=== PATIENT | female | born 1995 ===

== ENCOUNTER 2024-02-03 14:07 | Inpatient (IN) | payer BC ==
[2024-02-03] MEDS ORDERED: Sodium Chloride 0.9% 20 ML SDV IV PRN (15:30)
[2024-02-03] MEDS ORDERED: Methylergonovine 0.2 MG/1 ML Amp IM PRN (15:30)
[2024-02-03] MEDS ORDERED: Lidocaine 1% 50 ML MDV INJECT PRN (15:30)
[2024-02-03] MEDS ORDERED: Butorphanol 2 MG/ML SDV IVPUSH PRN (15:30)
[2024-02-03] MEDS ORDERED: Misoprostol 200 MCG Tab PO PRN (15:30)
[2024-02-03] MEDS ORDERED: Carboprost Tromethamine 250 MCG/1 mL Vial IM PRN (15:30)
[2024-02-03] MEDS ORDERED: Sodium Chloride 0.9% 2.5 ML Syringe FLUSH PRN ×2 (15:30→16:35)
[2024-02-03] MEDS ORDERED: Tranexamic Acid IN NACL,ISO-OS 1,000 MG in Premix Bag 1 BAG IV PRN (15:30)
[2024-02-03] MEDS ORDERED: Water For Irrigation,Sterile 1,000 ML Container IRR PRN (15:30)
[2024-02-03] MEDS ORDERED: Sodium Chloride 0.9% 10 ML Syringe FLUSH PRN ×2 (15:30→16:35)
[2024-02-03] MEDS: Lactated Ringers 1,000 ML IV SCH (15:40)
[2024-02-03] MEDS: Ropivacaine HCl/PF 400 MG in Premix Bag 1 BAG EPIDUR SCH (15:55)
[2024-02-03] MEDS ORDERED: dexmedeTOMIDine HCl 200 MCG/2 ML SDV ONE (16:02)
[2024-02-03] MEDS ORDERED: Ropivacaine HCl/PF 200 ML ONE (16:02)
[2024-02-03] MEDS ORDERED: fentaNYL 100 MCG/2 ML SDV ONE (16:02)
[2024-02-03] MEDS ORDERED: Phenylephrine HCl In 0.9% NaCl 1 MG/10 ML Syringe ONE (16:02)
[2024-02-03] MEDS ORDERED: Ondansetron 4 MG/2 ML SDV ONE (16:06)
[2024-02-03] MEDS ORDERED: Phenylephrine HCl In 0.9% NaCl 1 MG/10 ML Syringe IVPUSH PRN (16:08)
[2024-02-03] MEDS ORDERED: ePHEDrine 50 MG/ML SDV IVPUSH PRN ×2 (16:08)
[2024-02-03] MEDS: Ondansetron 4 MG/2 ML SDV IVPUSH PRN (16:11)
[2024-02-03 16:13] LABS: HEMATOCRIT 34.6 % (37.0-47.0); HEMOGLOBIN 11.9 g/dL (12.0-16.0); MEAN CORPUSCULAR HEMOGLOBIN 31.9 pg (28.0-32.0); MEAN CORPUSCULAR HGB CONC 34.4 g/dL (32.0-36.0); MEAN CORPUSCULAR VOLUME 92.8 fL (83.0-99.0); PLATELET COUNT,PLT 175 K/uL (150-400); RED BLOOD CELL COUNT 3.73 M/uL (4.10-5.30); WHITE BLOOD CELL COUNT,WBC 11.74 K/uL (3.9-11.3)
[2024-02-03] MEDS ORDERED: Benzocaine/Menthol 20%-0.5% Spray 78 GM Cannister TOP PRN (16:35)
[2024-02-03] MEDS ORDERED: Witch Hazel Medicated Pads 40/Jar TOP PRN (16:35)
[2024-02-03] MEDS ORDERED: Acetaminophen 500 MG Tab PO PRN (16:35)
[2024-02-03] MEDS ORDERED: Lanolin 100% Cream 7 GM Tube TOP PRN (16:35)
[2024-02-03] MEDS ORDERED: Simethicone 80 MG Tab.Chew PO PRN (16:35)
[2024-02-03] MEDS ORDERED: diphenhydrAMINE 50 MG Cap PO PRN (16:35)
[2024-02-03] MEDS: Oxytocin/0.9 % Sodium Chloride 30 UNIT/500 ML BAG IV SCH (16:53)
[2024-02-03] MEDS: Ferrous Sulfate 325 MG Tab PO SCH (17:50)
[2024-02-03 18:14] LABS: PH,UMBILICAL ARTERIAL 7.241 (7.18-7.38); PH,UMBILICAL VENOUS 7.409 (7.25-7.45)
[2024-02-04 06:02] LABS: BASOPHILS ABSOLUTE AUTO 0.03 K/uL (0.00-0.20); BASOPHILS PERCENT AUTO 0.4 % (0.0-1.0); EOSINOPHILS ABSOLUTE AUTO 0.07 K/uL (0.00-0.45); EOSINOPHILS PERCENT AUTO 0.9 % (0.0-6.0); HEMATOCRIT 32.4 % (37.0-47.0); HEMOGLOBIN 10.7 g/dL (12.0-16.0); IMMATURE GRAN ABSOLUTE AUTO 0.05 K/uL (0.00-0.05); IMMATURE GRAN PERCENT AUTO 0.6 % (0.0-0.4); LYMPHOCYTES ABSOLUTE AUTO 1.99 K/uL (1.00-4.80); LYMPHOCYTES PERCENT AUTO 25.2 % (24.0-44.0); MEAN CORPUSCULAR HEMOGLOBIN 31.8 pg (28.0-32.0); MEAN CORPUSCULAR VOLUME 96.1 fL (83.0-99.0); MEAN PLATELET VOLUME 12.3 fL (9.4-12.3); MONOCYTES ABSOLUTE AUTO 0.63 K/uL (0.00-0.80); NEUTROPHILS ABSOLUTE AUTO 5.12 K/uL (1.80-7.70); NEUTROPHILS PERCENT AUTO 64.9 % (41.0-71.0); PLATELET COUNT,PLT 131 K/uL (150-400); RED BLOOD CELL COUNT 3.37 M/uL (4.10-5.30); WHITE BLOOD CELL COUNT,WBC 7.89 K/uL (3.9-11.3)
[2024-02-04] MEDS: Prenatal Multivitamin with Calcium/Folic Acid/Iron Tab PO SCH (07:53)
[2024-02-04] MEDS: Ibuprofen 800 MG Tab PO PRN (07:53)
[2024-02-04] MEDS: Docusate Sodium 100 MG Cap PO PRN (07:53)
== END 2024-02-05 12:50 | disposition home or self-care (01) | DRG 560 ==
LOC: MW.OBCHECK 14:07 → MW.OB 14:10 → MW.OBCHECK 15:30 → MW.OB 15:30 → OBSVTOIN 16:53 → MW.OB 20:59
PROVIDERS: ADMIT Obstetrics & Gynecology; ATTEND Obstetrics & Gynecology
PROC: 10E0XZZ Delivery of Products of Conception, External Approach (ICD-10-PCS; principal; 2024-02-03)
PROC: 3E0R3BZ Introduction of Anesthetic Agent into Spinal Canal, Percutaneous Approach (ICD-10-PCS; 2024-02-03)
PROC: 00HU33Z Insertion of Infusion Device into Spinal Canal, Percutaneous Approach (ICD-10-PCS; 2024-02-03)
PROC: 10907ZC Drainage of Amniotic Fluid, Therapeutic from Products of Conception, Via Natural or Artificial Opening (ICD-10-PCS; 2024-02-03)
DX: O99.03 Anemia complicating the puerperium (principal); Z37.0 Single live birth; D62 Acute posthemorrhagic anemia; Z3A.39 39 weeks gestation of pregnancy
CPT/HCPCS: 01967; 36415; 51702; 59025; 59409; 82803; 85025; 85027; 86592; 86850; 86900; 86901; A9270-GY; J2371; J2405; J2590; J2795; J3010; J3490; J7120